=== PATIENT | male | born 1950 | race Caucasian/White ===

== ENCOUNTER 2016-09-24 19:17 | Outpatient (CLI) | payer MEDICARE | END 2016-09-24 19:18 | disposition home or self-care (01) | DX: G47.61 Periodic limb movement disorder (principal); R06.83 Snoring ==

== ENCOUNTER 2016-10-07 09:12 | Outpatient (CLI) | payer MEDICARE | END 2016-10-07 09:13 | disposition home or self-care (01) | DX: G47.61 Periodic limb movement disorder (principal); G47.00 Insomnia, unspecified | CPT/HCPCS: 99213; G0463 ==

== ENCOUNTER → 2017-04-16 | Outpatient (CLI) | payer MEDICARE ==
[2017-04-16 19:11] LABS: CHOL/HDL RATIO 2.9 (<5.0); CHOLESTEROL 222 mg/dL; HDL CHOLESTEROL 77 mg/dL; LDL/HDL RATIO 1.5 (<3.6); TRIGLYCERIDES 133 mg/dL; VLDL CHOLESTEROL 27 mg/dL
== END ==
LOC: LAB.F 08:00
PROVIDERS: ATTEND Internal Medicine
DX: E78.9 Disorder of lipoprotein metabolism, unspecified (principal)
CPT/HCPCS: 36415; 80061

== ENCOUNTER 2017-09-30 09:06 | Outpatient (CLI) | payer MEDICARE ==
[2017-09-30 10:38] LABS: CHOL/HDL RATIO 2.8 (<5.0); CHOLESTEROL 164 mg/dL; HDL CHOLESTEROL 58 mg/dL; LDL CHOLESTEROL,CALCULATED 86 mg/dL; LDL/HDL RATIO 1.5 (<3.6); VLDL CHOLESTEROL 20 mg/dL
== END 2017-09-30 09:07 | disposition home or self-care (01) ==
LOC: LAB.F 09:06
PROVIDERS: ATTEND Physician Assistant Medical
DX: E78.9 Disorder of lipoprotein metabolism, unspecified (principal)
CPT/HCPCS: 36415; 80061; 83721

== ENCOUNTER 2018-07-23 08:29 | Outpatient (CLI) | payer MEDICARE ==
[2018-07-23 11:05] LABS: CHOL/HDL RATIO 2.9 (<5.0); CHOLESTEROL 211 mg/dL; HDL CHOLESTEROL 74 mg/dL; LDL CHOLESTEROL,CALCULATED 117 mg/dL; LDL/HDL RATIO 1.6 (<3.6); VLDL CHOLESTEROL 20 mg/dL
[2018-07-23 11:18] LABS: HB2 TOTAL 15.7 g/dL; HEMOGLOBIN A1C 0.53 g/dL; HEMOGLOBIN A1C % 5.2 % (4.6-6.2)
== END 2018-07-23 08:30 | disposition home or self-care (01) ==
LOC: LAB.F 08:29
PROVIDERS: ATTEND Internal Medicine
DX: E78.9 Disorder of lipoprotein metabolism, unspecified (principal); Z12.5 Encounter for screening for malignant neoplasm of prostate
CPT/HCPCS: 36415; 80061; 83036; G0103; 83721; 84153

== ENCOUNTER 2018-08-15 16:30 | Emergency (ER) | payer MEDICARE, OTHER ==
[2018-08-15] MEDS ORDERED: MECLIZINE 12.5 MG TABLET PO STA (16:57)
--- NOTE | 2018-08-15 17:00 | ED Physician Documentation ---
History of Present Illness - Stated complaint Stated Complaint: DIZZY - Chief complaint Chief Complaint: Neuro - History obtained from History obtained from: Patient, Family - History of Present Illness Timing: Last night Pain level max: 0 Pain level now: 0 Improved by: remaining still Worsened by: walking, turning head - Additonal information Additional information: Patient is a 68-year-old male who presents to the emergency department with feeling like the room is spinning since yesterday. Comes and goes in intensity. Worse with turning his head and walking. Feels like he is going to fall over. Has had some viral URI symptoms recently and took Benadryl and cough medication last night. No headaches. No visual changes. No chest pain. No shortness of breath. No numbness or tingling. No focal neurological deficits. Review of Systems Constitutional: denies: Fever Eyes: denies: Decreased vision Ears: denies: Ear pain Nose: reports: Rhinorrhea / runny nose, Congestion Throat: denies: Sore throat Respiratory: reports: Cough (dry) GI: denies: Vomiting, Diarrhea Skin: denies: Rash Musculoskeletal: denies: Neck pain, Back pain Neurologic: denies: Generalized weakness, Focal weakness, Numbness, Syncope, Seizure, Confused, Headache, Head injury, LOC PD PAST MEDICAL HISTORY - Past Medical History Past Medical History: No - Past Surgical History Past Surgical History: No - Present Medications Home Medications: Ambulatory Orders Medication Instructions Recorded Confirmed Aspirin Chewable [[facility] 08/15/18 08/15/18 Aspirin] Meclizine [Antivert] 25 mg PO Q6H PRN #30 tablet 08/15/18 - Allergies Allergies/Adverse Reactions: Allergies Allergy/AdvReac Type Severity Reaction Status Date / Time Penicillins Allergy Rash Verified 08/15/18 16:39 PD ED PE NORMAL - Vitals Vital signs reviewed: Yes - General General: Alert and oriented X 3, No acute distress, Well developed/nourished - HEENT HEENT: Atraumatic, PERRL, EOMI, Ears normal, Moist mucous membranes, Pharynx benign, Other (negative hallpike B) - Neck Neck: Supple, no meningeal sign - Cardiac Cardiac: RRR, Strong equal pulses - Respiratory Respiratory: No respiratory distress, Clear bilaterally - Abdomen Abdomen: Soft, Non tender, Non distended - Derm Derm: Warm and dry, No rash - Extremities Extremities: No edema, No calf tenderness / cord - Neuro Neuro: Alert and oriented X 3, turbogenerator operator 2-12 intact, No motor deficit, No sensory deficit, Normal speech, Other (Normal cerebellar test. Did fall to the left once when walking heel to toe) Eye Opening: Spontaneous Motor: Obeys Commands Verbal: Oriented GCS Score: 15 - Psych Psych: Normal mood, Normal affect Results - Vitals Vitals: Vital Signs - 24 hr 08/15/18 08/15/18 16:35 18:10 Temperature 36.7 C 36.9 C Heart Rate 68 69 Respiratory 16 16 Rate Blood Pressure 154/89 H 152/86 H O2 Saturation 97 99 Oxygen O2 Source Room air - EKG (time done) 1704 Rate: Rate (enter#) (77) Rhythm: Other (sinus arrhythmia) [place]: Normal Intervals: Normal NE QRS: Normal Ischemia: Normal ST segments - Labs Labs: Laboratory Tests 08/15/18 08/15/18 08/15/18 17:00 17:40 17:40 WBC 11.3 H RBC 4.85 Hgb 14.3 Hct 42.7 MCV 88.0 MCH 29.6 MCHC 33.6 RDW 14.0 Plt Count 201 MPV 7.9 Neut # (Auto) 9.7 H Lymph # (Auto) 0.8 L [place] # (Auto) 0.6 Eos # (Auto) 0.2 Baso # (Auto) 0.1 Absolute Nucleated RBC 0.00 Nucleated RBC % 0.0 Sodium 135 Potassium 3.6 Chloride 103 Carbon Dioxide 25 Anion Gap 7.0 BUN 17 Creatinine 1.0 Estimated GFR (MDRD) 74 L Glucose 125 H Calcium 9.6 Total Bilirubin 0.4 AST 23 ALT 18 Alkaline Phosphatase 52 Total Protein 7.3 Albumin 4.6 Globulin 2.7 Albumin/Globulin Ratio 1.7 Lipase 37 Urine Color YELLOW Urine Clarity CLEAR Urine pH 7.5 Ur Specific [place] 1.020 Urine Protein NEGATIVE Urine Glucose (UA) NEGATIVE Urine Ketones NEGATIVE Urine Occult Blood TRACE-INTA Urine Nitrite NEGATIVE Urine Bilirubin NEGATIVE Urine Urobilinogen 0.2 (NORMAL) Ur Leukocyte Esterase NEGATIVE Ur Microscopic Review NOT INDICATED Urine Culture Comments NOT INDICATED - Rads (name of study) head CT Radiology: Prelim report reviewed, EMP read contemporaneously, See rad report (No acute intracranial abnormality) PD MEDICAL DECISION MAKING - ED course Complexity details: reviewed results, re-evaluated patient, considered d ifferential, d/w patient, d/w family ED course: Patient is a 68-year-old male with what sounds like vertigo today. No acute findings on CT. No focal neurological deficits. No acute laboratory abnormalities. Does feel better after meclizine. We will trial him on this for home and see how he progresses. Has had viral URI symptoms for the past day or 2, possibly related to this? Ears are normal on examination however. Patient counseled regarding signs and symptoms for which I believe and urgent re- evaluation would be necessary. Patient with good understanding of and agreement to plan and is comfortable going home at this time This document was made in part using voice recognition software. While efforts are made to proofread this document, sound alike and grammatical errors may occur. Departure - Departure Disposition: 01 Home, Self Care Clinical Impression: Vertigo Condition: Good Instructions: ED Dizziness UKO, ED Vertigo Unspecified Follow-Up: Tejas Montemayor MD [Primary Care Provider] - Within 1 week Prescriptions: Meclizine [Antivert] 25 mg PO Q6H PRN #30 tablet PRN Reason: Vertigo Comments: Use the meclizine as needed for the dizziness. Return if you worsen. Your tests are normal tonight. your [facility] was [facility] to [facility] [place]. Discharge Date/Time: 08/15/18 18:55
[2018-08-15] MEDS ORDERED: IOVERSOL 320 100 ML VIAL IVP ONE (17:04)
[2018-08-15 17:18] LABS: BILIRUBIN,URINE NEGATIVE (NEGATIVE); GLUCOSE, URINE (UA) NEGATIVE (NEGATIVE); KETONES,URINE (UA) NEGATIVE (NEGATIVE); LEUKOCYTE ESTERASE, URINE NEGATIVE (NEGATIVE); NITRITE,URINE NEGATIVE (NEGATIVE); OCCULT BLOOD,URINE TRACE-INTA (NEGATIVE); PH,URINE 7.5 PH (5.0-7.5); PROTEIN,URINE NEGATIVE (NEGATIVE); UROBILINOGEN,URINE 0.2 (NORMAL) E.U./dL (NORMAL)
[2018-08-15 17:21] LABS: CLARITY,URINE CLEAR (CLEAR)
--- NOTE | 2018-08-15 17:22 | CT Report ---
Reason: off balance, falls to the L Procedure Date: 08/15/2018 Accession Number: [id number] / [id number] Procedure: CT - Head W/O Stroke Protocol CPT Code: FULL RESULT: EXAM: CT HEAD EXAM DATE: 08/15/2018 05:10 PM. CLINICAL HISTORY: Off balance, falls to the L. COMPARISON: None available. TECHNIQUE: Multiaxial CT images were obtained from the foramen magnum to the vertex. Reformats: Sagittal and coronal. IV contrast: None. In accordance with CT protocol optimization, one or more of the following dose reduction techniques were utilized for this exam: automated exposure control, adjustment of mA and/or KV based on patient size, or use of iterative reconstructive technique. FINDINGS: Parenchyma: No acute intraparenchymal hemorrhage. No evidence of mass or midline shift. [place]-white differentiation is distinct. Extraaxial Spaces: No subdural or epidural collections identified. Ventricles: Normal in size and position. Sinuses and Orbits: Imaged paranasal sinuses, orbits, and mastoids show no significant abnormality. Bones: No evidence of fracture or calvarial defect. Other: None. IMPRESSION: No acute intracranial findings. An acute infarct may not be visible on CT. Follow-up examinations recommended as clinically indicated. [facility] The call report notification system was initiated by Dr. Stevo Merrill at 17:18 hrs on 08/15/18. The above findings were discussed with Rick Adrian by Dr. Stevo Merrill at 17:20 hrs on 08/15/18.
[2018-08-15 17:44] LABS: BASOPHILS # (AUTO) 0.1 10^3/uL (0.0-0.1); BASOPHILS % (AUTO) 0.8 %; EOSINOPHILS # (AUTO) 0.2 10^3/uL (0.0-0.7); EOSINOPHILS % (AUTO) 1.7 %; HGB - HEMOGLOBIN 14.3 g/dL (14.0-18.0); LYMPHOCYTES # (AUTO) 0.8 10^3/uL (1.5-3.5); LYMPHOCYTES % (AUTO) 7.3 %; MEAN CORPUSCULAR HEMOGLOBIN 29.6 pg (27.0-31.0); MEAN CORPUSCULAR HGB CONC 33.6 g/dL (32.0-36.0); MEAN PLATELET VOLUME 7.9 fL (7.4-11.4); MONOCYTES # (AUTO) 0.6 10^3/uL (0.0-1.0); NEUTROPHILS # (AUTO) 9.7 10^3/uL (1.5-6.6); NEUTROPHILS % (AUTO) 85.2 %; PLT - PLATELET COUNT 201 10^3/uL (130-450); RED BLOOD COUNT 4.85 10^6/uL (4.70-6.10); WHITE BLOOD COUNT 11.3 x10^3/uL (4.8-10.8)
[2018-08-15 17:58] LABS: ALBUMIN 4.6 g/dL (3.2-5.5); ALBUMIN/GLOBULIN RATIO 1.7 (1.0-2.2); BILIRUBIN,TOTAL 0.4 mg/dL (0.2-1.0); CALCIUM 9.6 mg/dL (8.5-10.3); TOTAL PROTEIN 7.3 g/dL (6.7-8.2)
[2018-08-15 18:11] VITALS: BP 152/86
== END 2018-08-15 18:55 | disposition home or self-care (01) ==
LOC: ED 16:30
DX: R42 Dizziness and giddiness (principal); Z79.82 Long term (current) use of aspirin
CPT/HCPCS: 36415; 70450; 80053; 81003; 83690; 85025; 93005; 99284; A9270; 81001; 87086

== ENCOUNTER 2018-08-26 07:57 | Day surgery (SDC) | payer MEDICARE ==
[2018-08-26] MEDS ORDERED: LACTATED RINGERS 1,000 ML IV ONE (09:11)
[2018-08-26] MEDS ORDERED: MIDAZOLAM 2 MG/2 ML VIAL IVP ONE (09:20)
[2018-08-26] MEDS ORDERED: fentaNYL 250 MCG/5 ML VIAL IVP ONE (09:20)
[2018-08-26] MEDS ORDERED: SIMETHICONE 40 MG/0.6 ML 30 ML BOTTLE PO ONE (09:32)
[2018-08-26 10:39] VITALS: BP 112/80
== END 2018-08-26 07:58 | disposition home or self-care (01) ==
LOC: SDS 07:57
PROVIDERS: ATTEND Internal Medicine
PROC: 0DBP8ZZ Excision of Rectum, Via Natural or Artificial Opening Endoscopic (ICD-10-PCS; principal; 2018-08-26 09:00)
DX: Z12.11 Encounter for screening for malignant neoplasm of colon (principal); D12.8 Benign neoplasm of rectum; K64.0 First degree hemorrhoids; Z80.0 Family history of malignant neoplasm of digestive organs
CPT/HCPCS: 45380; A9270; J3010; J7120

== ENCOUNTER 2021-07-03 08:02 | Outpatient (CLI) | payer MEDICARE ==
[2021-07-03 14:16] LABS: BASOPHILS # (AUTO) 0.1 10^3/uL (0.0-0.1); BASOPHILS % (AUTO) 2.1 %; EOSINOPHILS # (AUTO) 0.3 10^3/uL (0.0-0.7); EOSINOPHILS % (AUTO) 5.3 %; HCT - HEMATOCRIT 43.9 % (42.0-52.0); HGB - HEMOGLOBIN 14.7 g/dL (14.0-18.0); LYMPHOCYTES # (AUTO) 1.2 10^3/uL (1.5-3.5); LYMPHOCYTES % (AUTO) 25.4 %; MEAN CORPUSCULAR HEMOGLOBIN 30.1 pg (27.0-31.0); MEAN CORPUSCULAR HGB CONC 33.5 g/dL (32.0-36.0); MEAN CORPUSCULAR VOLUME 89.8 fL (80.0-94.0); MEAN PLATELET VOLUME 10.2 fL (7.4-11.4); MONOCYTES # (AUTO) 0.6 10^3/uL (0.0-1.0); MONOCYTES % (AUTO) 13.2 %; NEUTROPHILS # (AUTO) 2.5 10^3/uL (1.5-6.6); NEUTROPHILS % (AUTO) 53.8 %; PLT - PLATELET COUNT 221 10^3/uL (130-450); RED BLOOD COUNT 4.89 10^6/uL (4.70-6.10); RED CELL DISTRIBUTION WIDTH 13.6 % (12.0-15.0); WHITE BLOOD COUNT 4.7 x10^3/uL (4.8-10.8)
[2021-07-03 14:49] LABS: ALBUMIN 4.5 g/dL (3.2-5.5); ALBUMIN/GLOBULIN RATIO 1.7 (1.0-2.2); ALKALINE PHOSPHATASE 54 IU/L (42-121); ALT ALANINE AMINOTRANSFERASE 16 IU/L (10-60); AST ASPARTATE AMINOTRANSFERASE 19 IU/L (10-42); BILIRUBIN,TOTAL 1.1 mg/dL (0.2-1.0); BUN - BLOOD UREA NITROGEN 15 mg/dL (6-20); CALCIUM 9.8 mg/dL (8.5-10.3); CARBON DIOXIDE - CO2 27 mmol/L (21-32); CHLORIDE 105 mmol/L (101-111); CHOL/HDL RATIO 3.3 (<5.0); CHOLESTEROL 234 mg/dL; CREATININE 0.9 mg/dL (0.6-1.2); GFR - MDRD 83 (>89); GLUCOSE 89 mg/dL (70-100); HDL CHOLESTEROL 70 mg/dL; LDL CHOLESTEROL,CALCULATED 138 mg/dL; POTASSIUM 3.9 mmol/L (3.5-5.0); SODIUM 139 mmol/L (135-145); TOTAL PROTEIN 7.2 g/dL (6.7-8.2); TRIGLYCERIDES 131 mg/dL; VLDL CHOLESTEROL 26 mg/dL
== END 2021-07-03 08:03 | disposition home or self-care (01) ==
LOC: LAB.S 08:02
PROVIDERS: ATTEND Internal Medicine
DX: Z79.899 Other long term (current) drug therapy (principal); E78.5 Hyperlipidemia, unspecified; Z12.5 Encounter for screening for malignant neoplasm of prostate
CPT/HCPCS: 36415; 80053; 80061; 85025; G0103; 83721; 84153

== ENCOUNTER 2022-11-25 08:06 | Outpatient (CLI) | payer MEDICARE ==
[2022-11-25 14:49] LABS: BASOPHILS # (AUTO) 0.1 10^3/uL (0.0-0.1); BASOPHILS % (AUTO) 1.3 %; EOSINOPHILS # (AUTO) 0.4 10^3/uL (0.0-0.7); EOSINOPHILS % (AUTO) 6.9 %; HCT - HEMATOCRIT 42.2 % (42.0-52.0); HGB - HEMOGLOBIN 13.5 g/dL (14.0-18.0); LYMPHOCYTES # (AUTO) 1.3 10^3/uL (1.5-3.5); LYMPHOCYTES % (AUTO) 21.2 %; MEAN CORPUSCULAR HEMOGLOBIN 29.3 pg (27.0-31.0); MEAN CORPUSCULAR VOLUME 91.5 fL (80.0-94.0); MEAN PLATELET VOLUME 10.9 fL (7.4-11.4); MONOCYTES # (AUTO) 0.9 10^3/uL (0.0-1.0); MONOCYTES % (AUTO) 14.1 %; NEUTROPHILS # (AUTO) 3.4 10^3/uL (1.5-6.6); NEUTROPHILS % (AUTO) 56.3 %; PLT - PLATELET COUNT 206 10^3/uL (130-450); RED BLOOD COUNT 4.61 10^6/uL (4.70-6.10); RED CELL DISTRIBUTION WIDTH 14.3 % (12.0-15.0); WHITE BLOOD COUNT 6.1 x10^3/uL (4.8-10.8)
[2022-11-25 15:22] LABS: CHOL/HDL RATIO 1.8 (<5.0); CHOLESTEROL 132 mg/dL; CREATININE 0.9 mg/dL (0.6-1.2); GFR - MDRD 82 (>89); HDL CHOLESTEROL 72 mg/dL; LDL CHOLESTEROL,CALCULATED 41 mg/dL; LDL/HDL RATIO 0.6 (<3.6); TRIGLYCERIDES 93 mg/dL; VLDL CHOLESTEROL 19 mg/dL
== END 2022-11-25 08:07 | disposition home or self-care (01) ==
LOC: LAB.S 08:06
PROVIDERS: ATTEND Internal Medicine
DX: I25.110 Atherosclerotic heart disease of native coronary artery with unstable angina pectoris (principal); R89.8 Other abnormal findings in specimens from other organs, systems and tissues
CPT/HCPCS: 36415; 80061; 82565; 83721; 84132; 85025

== ENCOUNTER 2023-07-02 16:25 | Outpatient (CLI) | payer MEDICARE ==
--- NOTE | 2023-07-03 18:14 | XRAY Report ---
PROCEDURE: Foot 3 View LT INDICATIONS: PAIN TECHNIQUE: 3 views of the foot were acquired. COMPARISON: None. FINDINGS: Bones: No fractures or dislocations. Mild first MTP joint space narrowing and periarticular osteophy tosis. No suspicious bony lesions. Soft tissues: No suspicious soft tissue calcifications or masses. IMPRESSION: 1. No acute osseous abnormality. 2. Mild first MTP joint osteoarthritis. Reviewed by: Warren Harmon MD on 07/03/2023 6:13 PM PDT Approved by: Warren Harmon MD on 07/03/2023 6:13 PM PDT Station ID: [id number]
== END 2023-07-02 16:26 | disposition home or self-care (01) ==
LOC: DI 16:25
PROVIDERS: ATTEND Podiatrist
DX: M19.072 Primary osteoarthritis, left ankle and foot (principal)